=== PATIENT | female | born 1970 | race Caucasian/White ===

== ENCOUNTER 2020-09-01 03:14 | Emergency (ER) | payer OTHER, SELFPAY ==
[2020-09-01 04:26] LABS: Medtox Reader # READER 4; THC/Cannabinoid Screen Detected (NotDetected)
[2020-09-01 04:27] LABS: Amphetamine Detected (NotDetected); Barbiturates Screen Not Detected (NotDetected); Benzodiazepine Screen Detected (NotDetected); Cocaine Metabolite Screen Not Detected (NotDetected); Medtox Control Line Valid? VALID (VALID); Methadone Not Detected (NotDetected); Methamphetamine Detected (NotDetected); Opiate Screen Not Detected (NotDetected); Oxycodone Screen Not Detected (NotDetected); Phencyclidine (PCP) Not Detected (NotDetected); Tricyclic Screen Not Detected (NotDetected)
== END 2020-09-01 07:04 | disposition home or self-care (01) ==
LOC: ERS 03:14
DX: R41.82 Altered mental status, unspecified (principal); F12.10 Cannabis abuse, uncomplicated; F15.10 Other stimulant abuse, uncomplicated; F13.10 Sedative, hypnotic or anxiolytic abuse, uncomplicated; V67.5XXA Driver of heavy transport vehicle injured in collision with fixed or stationary object in traffic accident, initial encounter
CPT/HCPCS: 36415; 51701; 70450; 72125; 80306; 80307